=== PATIENT | male | born 1960 | race Caucasian/White ===

== ENCOUNTER 2018-12-02 10:16 | Inpatient (IN) | payer BC ==
--- NOTE | 2018-11-27 13:59 | Rehab Preoperative Intake Form ---
Pre-Operative Intake Form - Scheduled Procedure Type of Surgical Procedure: Total Hip - Left - Patient Living Situation Current Living Situation: Spouse/Significant Other Current Housing Situation: Mobile Home - Entrance Detail Current Housing Entrance: Steps (Two steps leading into home.), Hand Rails - One on Left Side Number of Steps: 2 - Bathroom Detail Bathroom Setup: Tub Toilet Setup: Elevated Toilet - Post-Op Home Assistance Pt has meals following surgery?: Yes Pt has transportation following surgery?: Yes - Equipment Detail Currently Own/Have Access To: Walker (Four wheeled walker and single point cane.), Cane, Shower Bench - Work Status Current Work Status: Other (Currently unemployed) - Additional Detail Patient Returning Home In: Car Patient is scheduled for the following: Home PT
[~2018-12-02 10:16] MED LIST: CEFAZOLIN 2 Gram 2 GM/50 ML BAG IVPB ONE; CELECOXIB 100 MG CAPSULE PO ONE; FAMOTIDINE 20MG TABLET PO ONE; MECLIZINE 25 MG TABLET PO ONE; METOCLOPRAMIDE 10 MG TABLET PO ONE; VANCOMYCIN 1GM/200ML PREMIX 1 GM/200 ML PIGGYBACK IVPB ONE
[2018-12-02] MEDS ORDERED: 0.9 % SODIUM CHLORIDE 1000ML 1,000 ML IV ONE ×2 (11:15→13:29)
[2018-12-02] MEDS ORDERED: FENTANYL PF 100MCG/2ML VIAL ONE (12:38)
[2018-12-02] MEDS ORDERED: BUPIVACAINE 0.5% W/EPI MPF 30 ML VIAL SQ ONE (13:26)
[2018-12-02] MEDS ORDERED: TRANEXAMIC ACID 1,000 MG/10 ML ML IU ONE (13:27)
[2018-12-02] MEDS ORDERED: PHENYLEPHRINE HCL 10 MG/ML VIAL IVP ONE (14:00)
[2018-12-02] MEDS ORDERED: KETAMINE HCL 100MG/1ML VIAL INJ ONE (14:00)
[2018-12-02] MEDS ORDERED: TRANEXAMIC ACID 1,000 MG/10 ML ML IV ONE (14:00)
[2018-12-02] MEDS ORDERED: PROPOFOL 10 MG/ML VIAL IV ONE (14:00)
[2018-12-02] MEDS ORDERED: MIDAZOLAM HCL 2MG/2ML VIAL IV ONE (14:00)
[2018-12-02] MEDS ORDERED: ACETAMINOPHEN 325 MG TAB PO PRN (14:10)
[2018-12-02] MEDS ORDERED: ZOLPIDEM TARTRATE 5 MG TABLET PO PRN (14:10)
[2018-12-02] MEDS ORDERED: NALOXONE 0.4 MG/1 ML VIAL IVP PRN (14:10)
[2018-12-02] MEDS ORDERED: ACETAMINOPHEN W/ CODEINE 300MG/60MG TABLET PO PRN ×2 (14:10)
[2018-12-02] MEDS ORDERED: BISACODYL 10 MG SUPP RC PRN (14:10)
[2018-12-02] MEDS ORDERED: HYDROMORPHONE HCL 2 MG/ML VIAL IM PRN (14:10)
[2018-12-02] MEDS ORDERED: AL HYDROX/MAG HYDROX 30ML UD PO PRN (14:10)
[2018-12-02] MEDS ORDERED: MAGNESIUM HYDROXIDE 30 ML UDC PO PRN (14:10)
[2018-12-02] MEDS ORDERED: KETOROLAC 30 MG/ML VIAL IVP PRN ×2 (14:10)
[2018-12-02] MEDS ORDERED: HYDROCODONE/APAP 10/325 TABLET PO PRN (14:10)
[2018-12-02] MEDS ORDERED: TRAMADOL HCL 50 MG TABLET PO PRN (14:10)
[2018-12-02] MEDS ORDERED: ONDANSETRON HCL IV 4 MG/2 ML VIAL IVP PRN (14:10)
[2018-12-02] MEDS ORDERED: DIPHENHYDRAMINE HCL 25 MG CAPSULE PO PRN (14:10)
[2018-12-02] MEDS ORDERED: POTASSIUM CHLORIDE/D5-0.9%NACL 20 MEQ/1,000 ML BAG IV SCH (15:00)
[2018-12-02] MEDS: 0.9 % SODIUM CHLORIDE 1000ML 1,000 ML IV SCH ×2 (16:22→23:44)
[2018-12-02] MEDS: HYDROCODONE/APAP 10/325 TABLET PO PRN ×2 (17:49→22:01)
[2018-12-02 18:49] LABS: ABO GROUP A; ANTIBODY SCREEN NEGATIVE (NEGATIVE); RH TYPE POSITIVE
[2018-12-02] MEDS: DOCUSATE SODIUM 100 MG CAPSULE PO SCH (21:17)
[2018-12-02] MEDS: CEFAZOLIN 2 Gram 2 GM/50 ML BAG IVPB SCH (21:19)
[2018-12-02] MEDS: MELOXICAM 7.5 MG TABLET PO SCH (21:22)
[2018-12-03] MEDS: CEFAZOLIN 2 Gram 2 GM/50 ML BAG IVPB SCH ×2 (04:08→12:38)
[2018-12-03] MEDS: HYDROCODONE/APAP 10/325 TABLET PO PRN ×2 (06:06→12:37)
[2018-12-03] MEDS: 0.9 % SODIUM CHLORIDE 1000ML 1,000 ML IV SCH (06:39)
[2018-12-03] MEDS ORDERED: HCTZ PO SCH (07:00)
[2018-12-03] MEDS ORDERED: MAGNESIUM 250 MG PO SCH (07:00)
[2018-12-03] MEDS ORDERED: VALSARTAN PO SCH (07:00)
[2018-12-03] MEDS ORDERED: PATIENT OWN MED: OMEPRAZOLE 40 MG PO SCH (07:00)
[2018-12-03 07:01] LABS: HEMOGLOBIN 10.3 gm/dl (14.0-18.0)
[2018-12-03 07:14] LABS: BLOOD UREA NITROGEN 18 mg/dL (6-20); CREATININE 0.8 mg/dL (0.7-1.2); EST GLOMERULAR FILTRATION RATE > 60 mL/min; GLUCOSE,RANDOM 101 mg/dL (74-109)
[2018-12-03] MEDS ORDERED: DEXAMETHASONE 4 MG/ML 1ML VIAL IVP ONE (09:31)
[2018-12-03] MEDS ORDERED: 0.9 % SODIUM CHLORIDE 10 ML VIAL IVP ONE (09:31)
[2018-12-03] MEDS ORDERED: ROPIVACAINE HCL (NAROPIN) /PF 5MG/ML 20ML VIAL IV ONE (09:31)
[2018-12-03] MEDS: DOCUSATE SODIUM 100 MG CAPSULE PO SCH (09:46)
[2018-12-03] MEDS: MELOXICAM 7.5 MG TABLET PO SCH (09:46)
[2018-12-03] MEDS ORDERED: FERROUS SULFATE 325 MG TAB PO SCH (10:00)
[2018-12-03] MEDS ORDERED: RIVAROXABAN 10 MG TABLET PO SCH (10:00)
--- NOTE | 2018-12-03 10:37 | Rehab Evaluation ---
Patient Information - Patient Information Diagnosis: OA L hip Ordered Treatment: OT Evaluate and Treat Status: Initial Evaluation Surgery: Yes (L CLEMENT) Date of Surgery: 12/02/18 Past Medical/Surgical Hx: PAST MEDICAL/SURGICAL HISTORY Surgery to Affected Area? No Recent Surgery? Past Surgical History RTHA 2017 VASCULAR SX LEFT LEG 3.5 YRS AGO PMH - Respiratory Hx Respiratory Disorders Yes Hx Pneumonia Yes: YRS AGO PMH - Cardiovascular Hx Cardiovascular Disorders Yes Hx Deep Vein Thrombosis Yes: LEFT LEG 3.5 YRS AGO AFTER VASCULAR PROCEDURE Hx Hypertension Yes: ON MEDS WITH GOOD CONTROL Hx Vascular Disease Yes Exercise Tolerance Good PMH - Neuro Hx Neurological Disorders No PMH - GI Hx Gastrointestinal Disorders Yes Hx Gastroesophageal Reflux Yes: CONTROLLED WITH MEDS PMH - Hx Genitourinary Disorders No PMH - Endocrine Hx Endocrine Disorders No PMH - Musculoskeletal Hx Musculoskeletal Disorders Yes Hx Arthritis Yes: LEFT HIP AND BACK Hx Back Injury Yes PMH - Psych Hx Psychiatric Problems No PMH - Hematology/Oncology Hx Hematology/Oncology No Disorders Premorbid Status: Detail (Prior to admit, Pt was independent with all ADLs and functional TFs, occassionally using a single-point cane, and driving.) Social History: Detail (Pt lives with in a trailer with 2 steps to enter and bilateral hand-raild. The bathroom is equiped with a tub/shower combo, hand-held shower, and raised toilet seat. He has a FWW.) Precautions: [place], Fall, Other (FWB L hip; posterior hip precautions) - Time With Patient Total Time Spent With Patient (Min): 17 (1 eval, 1 ADL) Treatment Procedures: Detail (OT eval: low complexity) Subjective Information - Subjective Information Per Patient (Ok to see per DINESH Gutierrez. Pt agreeable to OT eval and Tx, spouse present.) Objective Data - Pain Pain Present: Yes Pain Scale Used: Numeric (1 - 10) (4/10 L hip) - Mental Status Patient Orientation: Oriented x3 - Visual Perception Appears within normal limits for therapeutic activities - ROM Within normal limits (B UEs) - Strength/Tone Within normal limits (B UEs) - Coordination Appears within normal limits for therapeutic activities - Bed Mobility Independent (Supine to/from EOB with good use of R leg to bring L leg to EOB with good awareness of hip precautions.) - Transfers Independent (Sit to/from stand from low EOB and from BSC over toilet to FWW with good awarness of hip precautions. OT educated PT on modified technique for TFs to low surfaces if needed at home with L leg kicked out to maintain hip precautions.) - Balance Balance Sitting: Good Balance Standing: Good (Good- standing pant mgmt with occasional use of FWW for balance.) - Sensation Intact - Gait Detail (Functional mobility within bedroom with FWW and safe use of walker.) - ADL's/IADL's Detail (OT educated Pt on modified technique and AD for LB dress - Pt demos good follow thru MOD I with use of sock aide and hazardous material specialist, reports AD works "pretty slick" however wants to assist at DC, was educated on where to purchase if changes mind later. Reports will assist with tedhose, OT instructs Pt on tips to don/doff socks and wearing schedule. Educated Pt on modified technique for shower TF, car TF, and home safety - Pt and spouse verbalize understanding.) Therapy Assessment - Therapy Assessment Detail (Pt shareeos good safety with hip precautions and functional independence with ADLs and functional TFs. Verbalizes home safety and has no further concerns for OT.) Patient Education - Patient Education Teaching Topic: Equipment Use, Precautions Response: Return Demonstration, Verbalize Understanding Teaching Method: Discussion, Demonstration Teaching Recipient: Patient Barriers To Learning: None Problem List - Problem List Occupational Therapy Problem List: Detail (No further skilled IP OT needs identified.) Goals - Goals Occupational Therapy Goals: No further skilled IP OT needs/goals identified. Prognosis - Prognosis Good Plan - Plan Occupational Therapy Plan: No further skilled IP OT needs identified, MO OT services. Thank you for this referral.
--- NOTE | 2018-12-03 10:40 | Rehab Evaluation ---
Patient Information - Patient Information Diagnosis: OA left hip Ordered Treatment: PT Evaluate and Treat Status: Initial Evaluation Surgery: Yes (CLEMENT) Date of Surgery: 12/02/18 Past Medical/Surgical Hx: PAST MEDICAL/SURGICAL HISTORY Surgery to Affected Area? No Recent Surgery? Past Surgical History RTHA 2017 VASCULAR SX LEFT LEG 3.5 YRS AGO PMH - Respiratory Hx Respiratory Disorders Yes Hx Pneumonia Yes: YRS AGO PMH - Cardiovascular Hx Cardiovascular Disorders Yes Hx Deep Vein Thrombosis Yes: LEFT LEG 3.5 YRS AGO AFTER VASCULAR PROCEDURE Hx Hypertension Yes: ON MEDS WITH GOOD CONTROL Hx Vascular Disease Yes Exercise Tolerance Good PMH - Neuro Hx Neurological Disorders No PMH - GI Hx Gastrointestinal Disorders Yes Hx Gastroesophageal Reflux Yes: CONTROLLED WITH MEDS PMH - Hx Genitourinary Disorders No PMH - Endocrine Hx Endocrine Disorders No PMH - Musculoskeletal Hx Musculoskeletal Disorders Yes Hx Arthritis Yes: LEFT HIP AND BACK Hx Back Injury Yes PMH - Psych Hx Psychiatric Problems No PMH - Hematology/Oncology Hx Hematology/Oncology No Disorders Premorbid Status: Detail (Patient lives in house trailer and has two steps up to get in the door. Has one hand rail and a cane that can use. Also has a walker now to use( in the car). Lives with and has an elevated toilet seat in bathroom, tub for bathing and hand held shower. Patient also to have home therapy initially. Has had other hip done in past and did well with it and anticipates same with this one.) Precautions: [place], Fall - Time With Patient Total Time Spent With Patient (Min): 30 Treatment Procedures: Detail (Patient seen in room, sitting up in bed and much more alert and seems to have less pain than yesterday. Says leg not numb now. Patient able to move supine to sit with very light assist for operated leg to make sure did not fall, but patient able to control pretty well. Sit to stand with FWW easily with proper technique, ambulated into padron and down to stairs, able to ambulate down three steps with use walker folded and rail then pivoted around and ambulated back up three steps with CGA only for safety and handholds as down. Ambulated further so total about 150 feet then back to room. Used bathroom seated and able to sit down and stand up with SBA only. Replaced compressive stockings on legs and made sure tray table close with call light. present to assist as needed. Patient also able to do some exercises for hip with light assist for heel slides, SLR, quad sets and ankle exercises. Reviewed hip precautions and patient remembered them all.) Subjective Information - Subjective Information Per Patient (Pain levels about 2-3/10 this am, slept OK but awakened several times. Pain controlled pretty well.) Objective Data - Pain Pain Present: Yes Pain Scale Used: Numeric (1 - 10) (2-3/10) - Mental Status Patient Orientation: Oriented x3 - Visual Perception Appears within normal limits for therapeutic activities - ROM Within normal limits (except left hip flexion about 50 degrees, abduction minimal and ER also minimal.) - Strength/Tone Within normal limits (Left hip at least 3/5 at this time: able to do SLR. Quite a lot of pain yet with lots of motion.) - Coordination Appears within normal limits for therapeutic activities - Bed Mobility Independent - Transfers Independent - Balance Balance Sitting: Good Balance Standing: Good - Sensation Intact - Gait Detail (Patient able to ambulate WBAT on left about 150 feet, down and up three steps with walker and rail with CGA only and then back to room with good tolerance.) - Special Tests No Therapy Assessment - Therapy Assessment Detail (Patient is doing extremely well this am and has already passed all skills to be discharged home when doctor able to see him.) Patient Education - Patient Education Teaching Topic: Equipment Use, Exercise/Activity, Precautions Response: Return Demonstration Teaching Method: Discussion, Demonstration Teaching Recipient: Patient, Family Barriers To Learning: None Problem List - Problem List Physical Therapy Problem List: Detail (Patient limited in mobility yet and ROM decreased but able to ambulate safely with FWW and able to negotiate stairs well (three, anyway).) Goals - Goals Physical Therapy Goals: Patient will be independent with bed mobility, supine to sit and sit to stand. Patient will be able to ambulate household distances with FWW and negotiate stairs with CGA safely for going home. Prognosis - Prognosis Good (Very good. Patient had other hip done several years ago and comfortable with process.) Plan - Plan Physical Therapy Plan: Patient has passed goals for discharge from PT at this time. He will have home therapy when gets home.
--- NOTE | 2018-12-04 15:40 | Discharge Summary ---
DATE OF ADMISSION: 12/02/2018 DATE OF DISCHARGE: 12/03/2018 DATE OF SURGERY: 12/02/2018 HISTORY OF PRESENT ILLNESS: The patient is a delightful 58-year-old male who presents with profound end stage arthrosis of the left hip. He was admitted after a left total hip arthroplasty. Postoperatively he did well. His discharge condition was good. His hospital course was unremarkable. Discharge hemoglobin was 10.3, not requiring transfusion. PLAN: Discharge him to home in care of his family. Home PT and visiting nurse has been arranged. He will be given [place] for pain, Xarelto followed by aspirin for DVT prophylaxis. He will follow up in my office in 4 weeks. Visiting nurse will remove the sutures in 2 weeks. FINAL DIAGNOSES: 1. End stage arthrosis of the left hip. 2. Acute operative blood loss anemia. OPERATIONS AND PROCEDURES: Cementless left total hip arthroplasty. CHELO
--- NOTE | 2018-12-04 15:40 | Operative Note ---
DATE OF SURGERY: 12/02/2018 PREOPERATIVE DIAGNOSIS: Endstage arthrosis of the left hip. POSTOPERATIVE DIAGNOSIS: Endstage arthrosis of the left hip. OPERATION: Cementless left total hip arthroplasty using [employer] components, with a size 56 no-hole REFLEXION cup, a 35 degree offset, 32 mm diameter liner, and a size 14 high offset cementless ECHELON stem with a +0 32 mm diameter Oxinium head. SURGEON: Medhat Alva M.D. ANESTHESIA: Spinal. PREPARATION: Chloraprep. INDIVIDUAL CONSIDERATIONS: None. PROCEDURE: The patient was taken to the operating room and placed supine on the operating room table. He had a successful induction of a spinal anesthetic. He was then placed on his side, left side up and his left hip and leg were prepped and draped in the usual fashion. The patient had a direct posterior approach to the hip. Sharp dissection carried down through the skin and subcutaneous tissue. Small veins were coagulated with the Bovie. The tensor gluteal fascia was opened along the entire length of the incision and deep retractors were placed. Short external rotators were identified in the piriformis fossa and removed, exposing the posterior capsule. Posterior capsulectomy was performed. The hip was dislocated posteriorly. He had flattening of the head with advanced changes. A femoral neck cut was then made about a fingerbreadth above the lesser troch, using an oscillating saw. A rim capsulectomy was performed. Starting with a 45 mm reamer to medialize to the medial wall, I reamed to the introitus which was a 55 for a 56 cup. I slightly under reamed the 54. I then impacted a size 56 no- hole REFLEXION cup in 20 degrees in forward flexion and 40 degrees of abduction, using the extra-articular alignment guide and bony landmarks. There was solid cementless fixation. I placed a center cap screw and then after irrigation, I impacted the 35 degree offset and a 32 mm diameter liner with the offset posteriorly and inferiorly. This gave an excellent stable acetabular construct and this was packed off. The proximal femur was delivered into the wound. A box-cutting osteotome was used to remove the proximal metaphyseal bone. Mid stem reaming is done to a size 14. I started barely feeling cortex at 12, I broached to 14, dialed anteversion to about 25 to 30 degrees. After calcar reaming with a +0 high offset trial, there was excellent motion stability, full anterior stability, and external rotation and extension, full posterior stability with flexion to 140 and internal rotation at 30 to 40 and at 90-90 flexion internal rotation still stability. The trial was removed after irrigation. I went ahead and impacted a size 14 high offset cementless ECHELON stem with solid calcar contact and solid cementless fixation. After irrigating and drying the Castellano Taper and the wound, I impacted a +0 32 mm diameter Oxinium head, reduced the hip with similar stability. The sciatica nerve was inspected and found to be completely intact. Hemostasis was obtained with a Bovie. I mixed a gram of tranexamic acid with 30 mL of saline and placed this deep in the fascia. The subcutaneous tissue and skin were infiltrated with 30 mL of 0.5% Marcaine with epinephrine. The fascia was then closed with a running #2 Quill, the subq was closed in layers of running 0 Quill, the skin was closed with meri. A sterile, bulky, compressive, MATEO-type dressing was applied. The patient tolerated the procedure well. The needle and sponge counts were correct. Estimated blood loss was about 600 mL. We will check a hemoglobin in the morning. There were no complications. [facility] DIVISIONDesmond
== END 2018-12-03 14:45 | disposition home health service (06) | DRG 470 ==
LOC: MEDSURG 10:16
PROVIDERS: ADMIT Orthopaedic Surgery; ATTEND Orthopaedic Surgery
PROC: 0SRB06A Replacement of Left Hip Joint with Oxidized Zirconium on Polyethylene Synthetic Substitute, Uncemented, Open Approach (ICD-10-PCS; principal; 2018-12-02 12:30)
DX: M16.12 Unilateral primary osteoarthritis, left hip (principal); I10 Essential (primary) hypertension; K21.9 Gastro-esophageal reflux disease without esophagitis; F17.210 Nicotine dependence, cigarettes, uncomplicated; Z86.718 Personal history of other venous thrombosis and embolism
CPT/HCPCS: 80048; 85014; 85018; 86850; 86900; 86901; C1776; J1885; J2370; J3370; J3490; J7030